=== PATIENT | female | born 1965 | race Caucasian/White ===

== ENCOUNTER 2018-07-17 08:06 | Emergency (ER) | payer BC ==
[2018-07-17] MEDS ORDERED: HYDROcodone 10MG/APAP 325MG 1 EA TAB PO ONE (08:28)
[2018-07-17] MEDS ORDERED: IBUPROFEN 200 MG TAB PO ONE (08:29)
--- NOTE | 2018-07-17 08:32 | ED.PDOC ---
History of Present Illness - General Chief Complaint: Lower Extremity Injury Time Seen by Provider: 07/17/18 08:20 Source: patient Exam Limitations: no limitations - History of Present Illness Initial Comments: c/o right knee pain starting approximately 12 hrs ago. Started going to the gym yesterday morning but she doesn't recall any injury. Significant knee injury > 20 yrs ago. Pain is anterior, peripatellar but mainly just below the patella. No fevers or rashes. Occurred: yesterday Pain - Lower Extremity: moderate: Right Knee Method of Injury: unknown Improving Factors: rest Worsening Factors: movement, other - weight bearing; particularly extension movements Allergies/Adverse Reactions: Allergies NO KNOWN ALLERGY Allergy (Unverified 07/17/18 08:30) Home Medications: Ambulatory Orders Almotriptan Malate 12.5 mg PO DAILY PRN 07/17/18 [id number]-Iqqvuui-Tbqlwtab W/ [Butalbital/Aspirin/Caffei 74-400-62-30 mg] 1 capsule PO BID 07/17/18 Candesartan Cilexetil 8 mg PO DAILY 07/17/18 Lamotrigine 25 mg PO TID 07/17/18 Promethazine Tab [Phenergan Tablet] 25 mg PO BID PRN 07/17/18 Tramadol HCl 50 mg PO Q8H PRN 3 Days #9 tab 07/17/18 Review of Systems - Review of Systems Constitutional: States: no symptoms reported Gastrointestinal/Abdominal: States: no symptoms reported Musculoskeletal: States: see HPI. Denies: joint swelling Skin: States: no symptoms reported Neurological: States: no symptoms reported Hematologic/Lymphatic: States: no symptoms reported Past Medical History (General) - Patient Medical History Hx Stroke: No Hx Congestive Heart Failure: No Hx Diabetes: No Surgical History: appendectomy - Vaccination History Hx Influenza Vaccination: No Hx Pneumococcal Vaccination: No - Social History Hx Tobacco Use: Yes - Quit 2010 Hx Alcohol Use: No - Female History Patient is a Female of Child Bearing Age (10 -59 yrs old): Yes Patient : No Family Medical History - Family History Mother Family History: No Known Living Status: Still Living Physical Exam - Physical Exam General Appearance: Alert, Comfortable, No apparent distress Neck: supple, normal inspection Cardiovascular/Respiratory: no respiratory distress Thigh/Hip: normal inspection Leg: normal inspection, non-tender, no evidence of injury Knee: no evidence of injury, limited ROM, pain, soft tissue tenderness, swelling - +/- swelling but no effusion; nonspecific pain except over patellar tendon; limited extension due to pain Ankle: normal inspection, no evidence of injury Neuro/Tendon: normal motor functions, responds to pain, no evidence tendon injury Mental Status: oriented x 3 Skin: normal color, warm/dry Progress - Progress Progress: 07/17/18 09:14 Plan = RICE; crutches; Dr. Estrella 07/17/18 09:18 Cautioned her & S.O. that she should not take concurrently with her migraine pain med - EKG/XRAY/CT XRAY: knee - no acute process Departure - Departure Clinical Impression: Knee pain, acute Qualifiers: Laterality: right Qualified Code(s): M25.561 - Pain in right knee Time of Disposition: 09:14 Disposition: Discharge to Home or Self Care Departure Forms: ED Discharge - Pt. Copy, Patient Portal Self Enrollment Instructions: DI for Knee Pain Activity: walking as tolerated Referrals: Faraz Estrella MD [Active Staff] - 1 Week Prescriptions: Tramadol HCl 50 mg PO Q8H PRN 3 Days #9 tab PRN Reason: Moderate To Severe Pain Home Medications: Ambulatory Orders Almotriptan Malate 12.5 mg PO DAILY PRN 07/17/18 [id number] W/ [Butalbital/Aspirin/Caffei 75-743-47-30 mg] 1 capsule PO BID 07/17/18 Candesartan Cilexetil 8 mg PO DAILY 07/17/18 Lamotrigine 25 mg PO TID 07/17/18 Promethazine Tab [Phenergan Tablet] 25 mg PO BID PRN 07/17/18 Tramadol HCl 50 mg PO Q8H PRN 3 Days #9 tab 07/17/18
--- NOTE | 2018-07-17 09:04 | RAD ---
EXAM DESCRIPTION: Knee,Right 2 or More Views CLINICAL HISTORY: 52 years, Female, knee pain COMPARISON: None TECHNIQUE: Three views of the right knee FINDINGS: Three views right knee demonstrate minor degenerative changes with normally aligned knee. No bony fracture or dislocation or severe degenerative changes or joint space narrowing noted. The bones are normally mineralized. IMPRESSION: 1. Mild degenerative changes otherwise negative knee. Electronically signed by: Kevin Romero MD 07/17/2018 9:01 AM CDT
[2018-07-17 09:42] VITALS: BP 114/75; TEMP 97.9; O2SAT 97
== END 2018-07-17 09:42 | disposition home or self-care (01) ==
LOC: ER 08:06
DX: M25.561 Pain in right knee (principal); Z87.891 Personal history of nicotine dependence

== ENCOUNTER → 2018-07-31 | Outpatient (CLI) | payer BC ==
--- NOTE | 2018-07-31 12:53 | RAD ---
EXAM DESCRIPTION: Knee,Right Complete CLINICAL HISTORY: M25.561, M25.551 COMPARISON: None FINDINGS: 4 views of the right knee. No acute fracture, dislocation or aggressive bone lesion is demonstrated. There is lateral patellar translation. No patella keyshawn is demonstrated. Advanced chondrosis or osteoarthritis. Bone mineralization is normal. IMPRESSION: Negative for acute radiographic antibody. 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 No advanced osteoarthritis. Electronically signed by: Kaiden Lu MD 07/31/2018 12:51 PM CDT
--- NOTE | 2018-07-31 12:54 | RAD ---
EXAM DESCRIPTION: Pelvis CLINICAL HISTORY: 52 years Female, M25.561, M25.551 COMPARISON: None. FINDINGS: AP pelvis. No fracture. No bone lesion. Hips normal. SI joints normal. IMPRESSION: Normal study Electronically signed by: Sean Elaine MD 07/31/2018 12:52 PM CDT
== END ==
LOC: RAD 08:34
PROVIDERS: ATTEND Orthopaedic Surgery
DX: M25.561 Pain in right knee (principal); M25.551 Pain in right hip